=== PATIENT | female | born 1960 | race African-American/Black ===

== ENCOUNTER 2020-07-23 14:54 | Emergency (ER) | payer BC ==
[~2020-07-23] VITALS: Ht 160 cm; Wt 100.7 kg
[2020-07-23 15:10] VITALS: BP 152/92
--- NOTE | 2020-07-23 15:10 | NUR ---
The patient , from home, took niacin and c/o burning sensation on her face. The patient is alert and oriented x4. Denies SOB. Respiration regular and unlabored. The patient denies ant burning sensation at this time. She states that the burning sensation was gone by the time ambulance arrived. The patient is in er bed #13. Will continue to monitor the patient.
--- NOTE | 2020-07-23 15:55 | NUR ---
Patient eloped from facility. ER MD notified. Dr Arana is made aware.
== END 2020-07-23 16:07 | disposition left against medical advice (07) ==
LOC: ER 15:04
DX: R20.2 Paresthesia of skin (principal); T46.7X5A Adverse effect of peripheral vasodilators, initial encounter; Z53.21 Procedure and treatment not carried out due to patient leaving prior to being seen by health care provider; Y92.89 Other specified places as the place of occurrence of the external cause